=== PATIENT | female | born 1980 | race African-American/Black ===

== ENCOUNTER 2017-05-25 15:00 | Emergency (ER) | payer MEDICARE, OTHER, MEDICAID ==
[~2017-05-25] VITALS: Ht 157.5 cm; Wt 63.5 kg
[~2017-05-25 15:00] MED LIST: ALB5IS NEB; AMINO ACIDS PROTEIN HYDROLYSAT PO; Acetaminophen PO; CAR200T PO; CAR3125T PO; CEFU500T17 PO; HYDR-4663 PO; METH1CHW IM; SUC1LQ PO; [UNRECOGNIZED DRUG - CODE] PO
[2017-05-25] MEDS ORDERED: ACETAMINOPHEN/CODEINE#3 (300/30mg) TAB PO ONE (20:00)
[2017-05-25 20:06] VITALS: BP 109/81
== END 2017-05-25 20:13 | disposition home or self-care (01) ==
LOC: ER 15:16
DX: S86.911A Strain of unspecified muscle(s) and tendon(s) at lower leg level, right leg, initial encounter (principal); S93.401A Sprain of unspecified ligament of right ankle, initial encounter; X58.XXXA Exposure to other specified factors, initial encounter; Y93.89 Activity, other specified; Y92.89 Other specified places as the place of occurrence of the external cause; Y99.8 Other external cause status
CPT/HCPCS: 93970

== ENCOUNTER 2020-08-06 18:07 | Emergency (ER) | payer MEDICARE, OTHER, MEDICAID ==
[~2020-08-06] VITALS: Ht 157.5 cm; Wt 65.8 kg
[~2020-08-06 18:07] MED LIST changes: -HYDR-4663 PO; +HYDR-4833 PO; -SUC1LQ PO; +SUCR1SUS10 PO
[2020-08-06 19:46] LABS: Urine Bacteria FEW /hpf (None Seen); Urine Blood 3+ /uL (Negative); Urine Mucus FEW (None Seen); Urine Specific Gravity 1.019 (1.001-1.035); Urine WBC 27 /hpf (0 - 5)
[2020-08-06 20:45] VITALS: BP 111/71
[2020-08-06 20:54] LABS: Basophils # (auto) 0 10 ^3/uL (0-0.2); Eosinophils # (auto) 0 10 ^3/uL (0-0.8); Lymphocytes # (auto) 1.4 10 ^3/uL (0.4-5.4); Mean Corpuscular Hemoglobin 25.2 pg (28.0-32.0); White Blood Cell 8.5 10^3/uL (4.4-10.8)
[2020-08-06 20:55] LABS: Basophils % (auto) 0.3 % (0.0-2.0); Hematocrit 31.2 % (36.0-46.0); Hemoglobin 9.9 g/dL (12.2-16.2); Mean Corpuscular Hgb Conc. 31.9 g/dL (32.0-36.0); Mean Corpuscular Volume 79.1 fL (80.0-100.0); Monocytes # (auto) 0.9 10 ^3/uL (0-1.3); Monocytes % (auto) 10.3 % (0.0-12.0); Neutrophils # (auto) 6.2 10 ^3/uL (1.6-8.6); Neutrophils % (auto) 73.4 % (37.0-80.0); Nucleated Red Blood Cells % 0.1 %; Platelet Count (auto) 253 10^3/uL (140-450); Red Blood Cells 3.95 10^6/uL (4.0-5.20); Red Cell Distribution Width 17.2 % (11.8-14.3)
[2020-08-06 21:10] LABS: INR 1.05 (0.9-1.15); Partial Thromboplastin Time 24.5 sec (23.0-31.2)
[2020-08-06 21:11] LABS: Albumin 3.1 g/dL (3.4-5.0); Anion Gap 10 (5-15); Aspartate Aminotransferase 21 U/L (15-37); Blood Urea Nitrogen 16 mg/dL (7-18); Calcium 9.1 mg/dL (8.5-10.1); Carbon Dioxide 18 mmol/L (21-32); Chloride 104 mmol/L (98-107); GFR African American 85 mL/min; GFR Non-African American 70 mL/min; Glucose 88 mg/dL (74-106); Potassium 4.4 mmol/L (3.5-5.1); Sodium 132 mmol/L (136-145)
[2020-08-06 21:20] LABS: Alanine Aminotransferase 14 U/L (13-56); Alkaline Phosphatase 70 U/L (45-117); Bilirubin, Total 0.5 mg/dL (0.2-1.0); Total Protein 8.3 g/dL (6.4-8.2)
== END 2020-08-06 20:51 | disposition home or self-care (01) ==
LOC: ER 18:10
DX: R07.89 Other chest pain (principal); N39.0 Urinary tract infection, site not specified
CPT/HCPCS: 36415; 71046; 80053; 81001; 83880; 84484; 85025; 85610; 85730; 93005

== ENCOUNTER → 2020-08-08 | Outpatient (CLI) | payer OTHER, MEDICAID ==
[~2020-08-08] MED LIST changes: +ZIPR80CA8 PO
== END | disposition home or self-care (01) ==
LOC: LAB 14:53
PROVIDERS: ATTEND Physician Assistant
DX: N39.0 Urinary tract infection, site not specified (principal)
CPT/HCPCS: 87086

== ENCOUNTER 2020-08-10 15:36 | Inpatient (IN) | payer OTHER, MEDICAID ==
[~2020-08-10] VITALS: Ht 165.1 cm; Wt 69.1 kg
[~2020-08-10 15:36] MED LIST changes: -ZIPR80CA8 PO
[2020-08-10] MEDS ORDERED: cefTRIAXone 1GM/50ML D5W 50 ML IV ONE (16:00)
[2020-08-10] MEDS ORDERED: SODIUM CHLORIDE 0.9% 1,000 ML IV ONE (16:15)
[2020-08-10 18:39] LABS: White Blood Cell 9.1 10^3/uL (4.4-10.8)
[2020-08-10 18:41] LABS: Hematocrit 27.6 % (36.0-46.0); Hemoglobin 9.2 g/dL (12.2-16.2); Mean Corpuscular Hemoglobin 25.6 pg (28.0-32.0); Mean Corpuscular Hgb Conc. 33.2 g/dL (32.0-36.0); Mean Corpuscular Volume 77.2 fL (80.0-100.0); Platelet Count (auto) 131 10^3/uL (140-450); Red Blood Cells 3.57 10^6/uL (4.0-5.20); Red Cell Distribution Width 16.5 % (11.8-14.3)
[2020-08-10 18:48] LABS: Basophils % (manual) 0 (0.0-2.0); Blast Cells 0; Eosinophils % (manual) 0 (0-7); Myelocytes % 0; Promyelocytes % 0; Reactive Lymphocytes 0
[2020-08-10 18:59] LABS: Albumin 2.4 g/dL (3.4-5.0); Anion Gap 10 (5-15); BUN/Creatinine Ratio 33.3; Blood Urea Nitrogen 40 mg/dL (7-18); Calcium 8.6 mg/dL (8.5-10.1); Carbon Dioxide 21 mmol/L (21-32); Chloride 105 mmol/L (98-107); GFR African American 64 mL/min; GFR Non-African American 53 mL/min; Glucose 121 mg/dL (74-106); Potassium 3.9 mmol/L (3.5-5.1); Sodium 136 mmol/L (136-145)
[2020-08-10 19:04] LABS: Alanine Aminotransferase 18 U/L (13-56); Alkaline Phosphatase 84 U/L (45-117); Aspartate Aminotransferase 42 U/L (15-37); Bilirubin, Total 0.6 mg/dL (0.2-1.0); Total Protein 7.7 g/dL (6.4-8.2)
[2020-08-10 19:14] LABS: Lactate Dehydrogenase 361 U/L (84-246)
[2020-08-10 19:21] LABS: Band Neutrophils % (manual) 1; Lymphocytes % (manual) 13 (10.0-50.0); Metamyelocytes % 2; Monocytes % (manual) 3 (0-12)
[2020-08-10 19:24] LABS: CRP High Sensitivity > 19.0 mg/dL (< 0.3)
[2020-08-10 19:28] LABS: Urine Bacteria NONE SEEN /hpf (None Seen); Urine Blood 3+ /uL (Negative); Urine Mucus FEW (None Seen); Urine Specific Gravity 1.017 (1.001-1.035); Urine WBC 16 /hpf (0 - 5)
[2020-08-10] MEDS ORDERED: AZITHROMYCIN 500MG/ 250ML 250 ML IV ONE (19:45)
[2020-08-10] MEDS ORDERED: IOHEXOL 350 MG/ML 100ML IJ ONE (21:34)
[2020-08-11] MEDS ORDERED: HYDROcodone-ACET 5/325MG TAB PO PRN
[2020-08-11] MEDS ORDERED: MECOBALAMIN IM SCH
[2020-08-11] MEDS ORDERED: NITROGLYCERIN 0.4 MG SL TAB SL PRN
[2020-08-11] MEDS ORDERED: ACETAMINOPHEN 500 MG TAB PO ONE
[2020-08-11] MEDS ORDERED: MORPHINE SULFATE 4 MG/ML SYR/VIAL IV PRN
[2020-08-11] MEDS ORDERED: DOCUSATE SOD 100 MG CAP PO PRN
[2020-08-11] MEDS ORDERED: MORPHINE SULF INJ 2 MG/ML SYRINGE 1ML IV PRN
[2020-08-11] MEDS ORDERED: ALBUTEROL SULF 2.5 MG/0.5ML(0.5%) NEB SOLN NEB PRN
[2020-08-11] MEDS ORDERED: ONDANSETRON HCL 4 MG/2 ML VIAL IV PRN
[2020-08-11 00:13] VITALS: BP 113/75
[2020-08-11 00:59] LABS: Basophils # (auto) 0 10 ^3/uL (0-0.2); Basophils % (auto) 0.1 % (0.0-2.0); Eosinophils # (auto) 0 10 ^3/uL (0-0.8); Hemoglobin 7.9 g/dL (12.2-16.2); Lymphocytes # (auto) 0.6 10 ^3/uL (0.4-5.4); Monocytes # (auto) 0.4 10 ^3/uL (0-1.3); Neutrophils # (auto) 5.8 10 ^3/uL (1.6-8.6); White Blood Cell 6.9 10^3/uL (4.4-10.8)
[2020-08-11 01:00] LABS: Hematocrit 24.2 % (36.0-46.0); Lymphocytes % (auto) 9.3 % (10.0-50.0); Mean Corpuscular Hemoglobin 25.1 pg (28.0-32.0); Mean Corpuscular Hgb Conc. 32.8 g/dL (32.0-36.0); Mean Corpuscular Volume 76.5 fL (80.0-100.0); Monocytes % (auto) 5.9 % (0.0-12.0); Neutrophils % (auto) 84.7 % (37.0-80.0); Platelet Count (auto) 144 10^3/uL (140-450); Red Blood Cells 3.17 10^6/uL (4.0-5.20); Red Cell Distribution Width 16.5 % (11.8-14.3)
[2020-08-11 01:15] LABS: BUN/Creatinine Ratio 34.4; Calcium 7.5 mg/dL (8.5-10.1); Potassium 3.4 mmol/L (3.5-5.1)
[2020-08-11 01:18] LABS: Bilirubin, Total 0.5 mg/dL (0.2-1.0); Total Protein 6.7 g/dL (6.4-8.2)
[2020-08-11] MEDS: SODIUM CHLOR 0.9% PF (SALINE LOCK) 10ML VIAL/SYR IV SCH ×3 (06:11→21:30)
[2020-08-11 07:41] LABS: Basophils # (auto) 0 10 ^3/uL (0-0.2); Basophils % (auto) 0.2 % (0.0-2.0); Eosinophils # (auto) 0 10 ^3/uL (0-0.8); Hemoglobin 8.7 g/dL (12.2-16.2); Monocytes # (auto) 0.5 10 ^3/uL (0-1.3)
[2020-08-11 07:43] LABS: Eosinophils % (auto) 0.1 % (0.0-7.0); Hematocrit 27.5 % (36.0-46.0); Lymphocytes # (auto) 0.3 10 ^3/uL (0.4-5.4); Lymphocytes % (auto) 3.9 % (10.0-50.0); Mean Corpuscular Hemoglobin 24.6 pg (28.0-32.0); Mean Corpuscular Hgb Conc. 31.7 g/dL (32.0-36.0); Mean Corpuscular Volume 77.7 fL (80.0-100.0); Monocytes % (auto) 6.9 % (0.0-12.0); Neutrophils % (auto) 88.9 % (37.0-80.0); Platelet Count (auto) 174 10^3/uL (140-450); Red Blood Cells 3.54 10^6/uL (4.0-5.20); Red Cell Distribution Width 16.9 % (11.8-14.3); White Blood Cell 6.8 10^3/uL (4.4-10.8)
[2020-08-11] MEDS ORDERED: ZIPR80CA8 PO (07:58)
[2020-08-11 08:00] LABS: Albumin 2.3 g/dL (3.4-5.0); Calcium 8.8 mg/dL (8.5-10.1)
[2020-08-11] MEDS: NUTREN 1.0 250 ML BTL PO SCH ×2 (08:00→18:00)
[2020-08-11 08:04] LABS: BUN/Creatinine Ratio 37.8; Bilirubin, Total 0.5 mg/dL (0.2-1.0); Total Protein 7.4 g/dL (6.4-8.2)
[2020-08-11] MEDS: cefTRIAXone 1GM/50ML D5W 50 ML IV SCH (09:23)
[2020-08-11] MEDS: AZITHROMYCIN 500MG/ 250ML 250 ML IV SCH (09:46)
[2020-08-11] MEDS: MULTIPLE VITAMIN TAB PO SCH (09:52)
[2020-08-11] MEDS: ASCORBIC ACID 500 MG TAB PO SCH ×2 (09:53→21:30)
[2020-08-11] MEDS: carBAMazepine 200 MG TAB PO SCH ×2 (09:53→21:30)
[2020-08-11] MEDS: ZINC SULFATE 220mg CAP or TAB PO SCH (09:53)
[2020-08-11] MEDS: FAMOTIDINE 20 MG TAB PO SCH ×2 (09:53→21:30)
[2020-08-11] MEDS ORDERED: CARVEDILOL 3.125 MG TAB PO SCH (10:00)
[2020-08-11] MEDS: ACETAMINOPHEN 325 MG TAB PO PRN (11:11)
--- NOTE | 2020-08-11 16:00 | NUR ---
Per ER nurse patient's mother has been stayed over night with patient at ER, spoke to house Anastasiia stated unable to give a permission for mother to stay due to there is no single room available at this time, left a message to Danni cummings's mother twice, awaiting to call back.
--- NOTE | 2020-08-11 16:15 | NUR ---
Telemetry admit from ER GRETEL RONDON admitted to Telemetry unit after SBAR received. Patient oriented to RYAN FRIED, primary RN, unit, room, bed, and unit policies regarding patient care and visiting hours. Patient now on continuous telemetry monitoring, tele box # 79 and telemetry reading on arrival to unit is . Patient placed on bedside oxygen, weighed by bed scale and encouraged to call if they need something. All questions and concerns addressed, patient verbalized understanding.
--- NOTE | 2020-08-11 16:19 | NUR ---
Flu sent to lab.
--- NOTE | 2020-08-11 16:20 | NUR ---
Unable to complete all admission due to patient's cognitive, left a message to pt's mother -Kelsea, awaiting to call back.
[2020-08-11 16:21] VITALS: BP 103/70
--- NOTE | 2020-08-11 16:48 | NUR ---
Spoke to Nely at Pharmacy regarding patient home meds, per Nely nobody brings home meds to pharmacy.
[2020-08-11 16:59] LABS: % Iron Saturation 6.4 % (15-50)
--- NOTE | 2020-08-11 17:30 | NUR ---
Hand in a lithopone charger to Kelsea at a lobby.
--- NOTE | 2020-08-11 17:45 | NUR ---
Per Rosa kramer, Patient's mother can stay with patient when there is a single room available.
--- NOTE | 2020-08-11 17:50 | NUR ---
Patient transferred from [facility] Patient transferred from [facility]. Report given. No S/S of respiratory distress or SOB. No reports of pain at this time. Transferring nurse explained that the mother Kelsea is scheduled to come in and sit with her daughter. Single room accommodations made for this purpose. Vitals HR 103, RR 20, BP 112/72, O2 96%, temp 98.2. Patient sitting up for dinner. Bed is in lowest position and the call light is within reach of the patient.
--- NOTE | 2020-08-11 18:00 | NUR ---
Report given to JOSH PARKER.
--- NOTE | 2020-08-11 18:05 | NUR ---
Patient is being transfer to room 207 with all belongings. No respiratory distress at the time of departure.
--- NOTE | 2020-08-11 18:05 | NUR ---
Called Kelsea-Mother again regarding patient is being transfer to room 207, left a message. Awaiting to call back.
--- NOTE | 2020-08-11 19:00 | NUR ---
Mother on floor Mother arrived on the floor to stay with patient.
--- NOTE | 2020-08-11 19:05 | NUR ---
Respiratory note: PT RECIEVED ON RA. PT AWAKE AND ALERT. NO RESP DISTRESS NOTED. SPO2 95%, HR 109, RR 16, BS CLEAR T/O. NO PRN TX INDICATED AT THIS TIME. PT AWARE TO CALL FOR PRN TX IF SOB/WHEEZING.
--- NOTE | 2020-08-11 19:30 | NUR ---
Opening Shift Note Assumed care of patient, awake and alert. Patient's mother at bedside and has permission from Vehicle Painter to stay overnight. No S/S of distress/SOB/pain. Fall, seizure, and safety precautions in place. Call light within reach and able to use. Instructed on POC and to call for assist PRN, patient/mother in agreement. Will continue to monitor for changes Q1hr and PRN.
--- NOTE | 2020-08-11 19:45 | NUR ---
STOOL / RESP CULTURE PATIENT HAS ORDERS FOR STOOL AND RESPIRATORY CULTURE. PATIENT DOES NOT HAVE PRODUCTIVE COUGH AND HAS NO HAD BOWEL MOVEMENT. INSTRUCTED PATIENT AND PATIENT'S MOTHER (WHO IS AT BEDSIDE) OF NEED FOR SPECIMEN COLLECTION AND TO NOTIFY THIS RN/STAFF WHEN PATIENT IS ABLE TO OBTAIN, MOTHER VERBALIZED UNDERSTANDING AND IN AGREEMENT. WILL CONTINUE TO MONITOR.
--- NOTE | 2020-08-11 21:15 | NUR ---
POM NOT FOUND POM NOT FOUND. CHECKED [facility]S [facility] WHERE PATIENT CAME FROM, PATIENT MEDICATION NOT FOUND. UNABLE TO GET A HOLD OF PHARMACY. WILL TRY AGAIN.
[2020-08-11] MEDS: ENOXAPARIN SOD 40 MG/0.4 ML SYRINGE SC SCH (21:31)
--- NOTE | 2020-08-11 21:55 | NUR ---
POM / PHARMACY ABLE TO CONNECT TO PHARMACY AT THIS TIME. PER PHARMACY, WILL SEND SCHEDULED MEDICATION VIA BULLET. AWAITING MEDICATION. WILL CONTINUE TO MONITOR.
[2020-08-11] MEDS: ZIPRASIDONE HCL 20 MG PO SCH ×2 (22:00→22:07)
--- NOTE | 2020-08-11 22:00 | NUR ---
TELE BOX CHANGE CONTACTED TELE GROUP CARE WORKER TO NOTIFY THAT PATIENT'S CURRENT TELE BOX IS FROM [facility]'S TELE ASSIGNMENT. WILL SEND CURRENT TELE BOX AND AWAIT NEW TELE BOX. FOR THIS REASON, PATIENT WILL BE OFF TELE MONITORING. WILL CONTINUE TO MONITOR. 2215 NEW TELE BOX RECEIVED, TELE BOX NOW #29 AND MONITORING.
--- NOTE | 2020-08-11 22:00 | NUR ---
MED/POM RECEIVED MED RECEIVED (ZIPRASIDONE) FROM PHARMACY AT THIS TIME. MEDICATION AT 1000 ON 08/11 NOT DOCUMENTED GIVEN (SEE EMAR). FOR THIS REASON, WILL ADMINISTER MEDICATION VIA ADMIN SCHEDULE TO REFLECT 2200 DOSE GIVEN AT THIS TIME.
[2020-08-11 22:02] VITALS: BP 101/66
--- NOTE | 2020-08-12 01:59 | NUR ---
ABNORMAL TELE READING PATIENT'S TELE READING SHOWS VTACH WITH NO RHYTHM PRESENT. PATIENT'S TELE LEADS OFF/MISPLACED. AT 0203, TELE LEADS REPLACED ON PATIENT. PATIENT'S HEART RATE 116BPM. WILL CONTINUE TO MONITOR.
[2020-08-12 05:00] VITALS: BP 98/64
[2020-08-12] MEDS: SODIUM CHLOR 0.9% PF (SALINE LOCK) 10ML VIAL/SYR IV SCH ×3 (05:10→21:32)
[2020-08-12 06:02] LABS: Basophils # (auto) 0 10 ^3/uL (0-0.2); Eosinophils # (auto) 0 10 ^3/uL (0-0.8); Hemoglobin 8.5 g/dL (12.2-16.2); Monocytes # (auto) 0.5 10 ^3/uL (0-1.3); White Blood Cell 6.9 10^3/uL (4.4-10.8)
[2020-08-12 06:04] LABS: Basophils % (auto) 0.1 % (0.0-2.0); Eosinophils % (auto) 0.1 % (0.0-7.0); Hematocrit 26.2 % (36.0-46.0); Lymphocytes # (auto) 2.2 10 ^3/uL (0.4-5.4); Lymphocytes % (auto) 31.7 % (10.0-50.0); Mean Corpuscular Hemoglobin 24.9 pg (28.0-32.0); Mean Corpuscular Hgb Conc. 32.5 g/dL (32.0-36.0); Mean Corpuscular Volume 76.8 fL (80.0-100.0); Monocytes % (auto) 6.9 % (0.0-12.0); Neutrophils # (auto) 4.2 10 ^3/uL (1.6-8.6); Neutrophils % (auto) 61.2 % (37.0-80.0); Nucleated Red Blood Cells % 0.2 %; Platelet Count (auto) 158 10^3/uL (140-450); Red Blood Cells 3.41 10^6/uL (4.0-5.20); Red Cell Distribution Width 16.8 % (11.8-14.3)
[2020-08-12 06:21] LABS: Potassium 3.5 mmol/L (3.5-5.1)
[2020-08-12 06:35] LABS: Albumin 2.2 g/dL (3.4-5.0); BUN/Creatinine Ratio 41.5; Bilirubin, Total 0.5 mg/dL (0.2-1.0); Calcium 9.1 mg/dL (8.5-10.1); Magnesium 2.6 mg/dL (1.6-2.6)
--- NOTE | 2020-08-12 06:46 | NUR ---
[facility] SWAB SENT
--- NOTE | 2020-08-12 07:35 | NUR ---
Opening note assumed care of patient from NOC RN. No s/s of distress or SOB noted. Bed is in lowest locked position, call light within reach, and side rails up x2 with seizure precautions in place. Patients mother at bedside with permission. Updated family and patient on plan of care, mother verbalized understanding and patient requires reinforcement. Will continue to monitor.
[2020-08-12] MEDS: NUTREN 1.0 250 ML BTL PO SCH ×2 (08:00→17:35)
--- NOTE | 2020-08-12 08:30 | NUR ---
Vitals Per CAN FILLING MACHINE OPERATOR vitals are 80/48, reassessment is 84/39 and temperature 101.8. Will provide patient with ice packs and reassess vitals.
--- NOTE | 2020-08-12 08:40 | NUR ---
Katlin patient alert and able to follow commands and is alert. B/p is now 98/ 61 and heart rate 113. No s/s of distress noted. Will continue to monitor. Addendum: 08/12/20 at 1419 by AXEL TEMPLE RN COOLING MEASURES IN PLACE.
[2020-08-12 09:00] VITALS: BP 84/39
--- NOTE | 2020-08-12 09:10 | NUR ---
Physician rounding Dr. Monet at bedside. MD updated patient and family on plan of care. MD spoke with patients sister Renae and provided updated on status. Will continue to monitor.
[2020-08-12] MEDS: ZIPRASIDONE HCL 20 MG PO SCH ×2 (10:00→21:32)
[2020-08-12] MEDS: cefTRIAXone 1GM/50ML D5W 50 ML IV SCH (10:10)
[2020-08-12] MEDS: ZINC SULFATE 220mg CAP or TAB PO SCH (10:11)
[2020-08-12] MEDS: MULTIPLE VITAMIN TAB PO SCH (10:11)
[2020-08-12] MEDS: ASCORBIC ACID 500 MG TAB PO SCH ×2 (10:11→21:32)
[2020-08-12] MEDS: ACETAMINOPHEN 325 MG TAB PO PRN (10:11)
[2020-08-12] MEDS: FAMOTIDINE 20 MG TAB PO SCH ×2 (10:12→21:32)
[2020-08-12] MEDS: ENOXAPARIN SOD 40 MG/0.4 ML SYRINGE SC SCH ×2 (10:16→21:33)
[2020-08-12] MEDS: carBAMazepine 200 MG TAB PO SCH ×2 (10:22→21:32)
[2020-08-12] MEDS: AZITHROMYCIN 500MG/ 250ML 250 ML IV SCH (11:32)
--- NOTE | 2020-08-12 12:27 | NUR ---
MED NEB GIVEN DUE FOR SPUTUM INDUCTION. PT WAS ABLE TO COUGH UP PHLEGM. SAMPLE COLLECTED AND SEND TO LAB. RN MADE AWARE.
[2020-08-12 13:00] VITALS: BP 96/67
[2020-08-12] MEDS: SODIUM FERR GLUC 62.5MG/5ML 125 MG in SODIUM CHL 0.9% 100 ML IV SCH (13:55)
--- NOTE | 2020-08-12 15:00 | NUR ---
spoke with family Spoke with patients sister renae in the presence of Kelsea garcia mother. Renae was requesting information about Dr. Gruber office, provided them with information.
--- NOTE | 2020-08-12 15:55 | NUR ---
Bed bath Assisted patient and their mother with bed bath. Patient tolerated well.
[2020-08-12 17:00] VITALS: BP 109/75
--- NOTE | 2020-08-12 18:36 | NUR ---
PT ASSESSED FOR PRN MED NEB TX. SPO2 95% ON RA, HR 103. NO RESPIRATORY DISTRESS NOTED. MOTHER AT BEDSIDE. BOTH ARE AWARE TO HAVE RT PAGED IF TX NEEDED.
--- NOTE | 2020-08-12 19:10 | NUR ---
End of shift note Endorsed care to NOC KEITH Knox. No s/s of distress noted.
--- NOTE | 2020-08-12 19:25 | NUR ---
Opening Shift Note Assumed care of patient, awake and alert. No S/S of distress/SOB/pain. Fall, seizure, and safety precautions in place. Call light within reach and able to use. Patient's mother at bedside and has permission from Brown Sourer. Instructed on POC and to call for assist PRN, patient/mother in agreement. Will continue to monitor for changes Q1hr and PRN.
[2020-08-12 22:00] VITALS: BP 108/72
[2020-08-13 05:13] VITALS: BP 95/66
[2020-08-13] MEDS: SODIUM CHLOR 0.9% PF (SALINE LOCK) 10ML VIAL/SYR IV SCH ×3 (05:24→22:00)
[2020-08-13 05:39] LABS: Basophils # (auto) 0 10 ^3/uL (0-0.2); Eosinophils # (auto) 0 10 ^3/uL (0-0.8); Nucleated Red Blood Cells % 0.1 %; White Blood Cell 5.5 10^3/uL (4.4-10.8)
[2020-08-13 05:41] LABS: Basophils % (auto) 0.3 % (0.0-2.0); Hematocrit 25.4 % (36.0-46.0); Hemoglobin 8.3 g/dL (12.2-16.2); Lymphocytes # (auto) 0.9 10 ^3/uL (0.4-5.4); Mean Corpuscular Hemoglobin 25.2 pg (28.0-32.0); Mean Corpuscular Hgb Conc. 32.7 g/dL (32.0-36.0); Mean Corpuscular Volume 77.2 fL (80.0-100.0); Monocytes # (auto) 0.7 10 ^3/uL (0-1.3); Monocytes % (auto) 12.6 % (0.0-12.0); Neutrophils # (auto) 3.9 10 ^3/uL (1.6-8.6); Neutrophils % (auto) 71.1 % (37.0-80.0); Platelet Count (auto) 170 10^3/uL (140-450); Red Blood Cells 3.28 10^6/uL (4.0-5.20); Red Cell Distribution Width 16.7 % (11.8-14.3)
[2020-08-13 05:59] LABS: BUN/Creatinine Ratio 44.2; Calcium 8.7 mg/dL (8.5-10.1); Potassium 3.2 mmol/L (3.5-5.1)
--- NOTE | 2020-08-13 07:20 | NUR ---
Respiratory note: RESPIRATORY RATE 24; SPO2 92%; HEART RATE 108; BREATH SOUNDS CLEAR. PT ASLEEP AT THIS TIME. NO RESPIRATORY DISTRESS NOTED.
[2020-08-13] MEDS: NUTREN 1.0 250 ML BTL PO SCH ×2 (08:00→18:00)
[2020-08-13 09:00] VITALS: BP 110/61
[2020-08-13] MEDS: ENOXAPARIN SOD 40 MG/0.4 ML SYRINGE SC SCH ×2 (09:57→22:00)
[2020-08-13] MEDS: FAMOTIDINE 20 MG TAB PO SCH ×2 (09:57→22:46)
[2020-08-13] MEDS: carBAMazepine 200 MG TAB PO SCH ×2 (09:57→22:45)
[2020-08-13] MEDS: MULTIPLE VITAMIN TAB PO SCH (09:57)
[2020-08-13] MEDS: ASCORBIC ACID 500 MG TAB PO SCH ×2 (09:57→22:46)
[2020-08-13] MEDS: ZINC SULFATE 220mg CAP or TAB PO SCH (09:57)
[2020-08-13] MEDS: cefTRIAXone 1GM/50ML D5W 50 ML IV SCH (09:57)
[2020-08-13] MEDS: ZIPRASIDONE HCL 20 MG PO SCH ×2 (10:00→22:00)
[2020-08-13] MEDS: AZITHROMYCIN 500MG/ 250ML 250 ML IV SCH (10:16)
[2020-08-13] MEDS: ACETAMINOPHEN 325 MG TAB PO PRN (10:19)
--- NOTE | 2020-08-13 11:01 | NUR ---
Nutrition Assessment Note please see attached link fro complete assessment Est [employer] needs BW 71 [id number] kcals (23-25 kcal/kgBW), Est Protein needs: 71-92gms/day (1.0-1.3 gm/kgBW r/t hypoalb) Will continue to monitor and reassess prn. Addendum: 08/13/20 at [address] Amended: Links added.
[2020-08-13] MEDS ORDERED: POTASSIUM EFFERVESENT TAB 25 MEQ PO ONE (12:15)
[2020-08-13 13:00] VITALS: BP 112/59
--- NOTE | 2020-08-13 13:10 | NUR ---
STOOL SAMPLE COLLECTED AND SENT
[2020-08-13] MEDS: SODIUM FERR GLUC 62.5MG/5ML 125 MG in SODIUM CHL 0.9% 100 ML IV SCH (13:51)
[2020-08-13 17:00] VITALS: BP 109/70
--- NOTE | 2020-08-13 19:20 | NUR ---
Opening shift note Assumed care of patient from day shift RN. Patient sitting up in bed A&O, respirations even and non-labored with no s/s of distress at this time. Mother of patient bedside. Discussed POC with mother and discussed patient needs, mother verbalized understanding. Bed in lowest locked position with 2 side rails up, call light with mother, advised mother to call for assistance/needs. Will continue to monitor Q1hr and PRN.
[2020-08-13 20:54] VITALS: BP 109/70
[2020-08-13 22:00] VITALS: BP 110/73
--- NOTE | 2020-08-14 00:55 | NUR ---
Respiratory note: PT SEEN AND ASSESSED FOR PRN MED NEB TX AT 0055. TX NOT INDICATED AT THIS TIME. PT DENIES HAVING ANY RESPIRATORY DISTRESS. HR 101 RR 16 SP02 97% ON ROOM AIR. PT AWARE TO CALL FOR RT IF ANY DISTRESS OCCURS.
[2020-08-14 04:37] VITALS: BP 95/57
[2020-08-14 05:53] LABS: Basophils # (auto) 0 10 ^3/uL (0-0.2); Basophils % (auto) 0.5 % (0.0-2.0); Eosinophils # (auto) 0 10 ^3/uL (0-0.8); Hematocrit 25.8 % (36.0-46.0); Hemoglobin 8.2 g/dL (12.2-16.2); Lymphocytes # (auto) 0.9 10 ^3/uL (0.4-5.4); Lymphocytes % (auto) 15.8 % (10.0-50.0); Mean Corpuscular Hemoglobin 24.7 pg (28.0-32.0); Mean Corpuscular Hgb Conc. 31.9 g/dL (32.0-36.0); Mean Corpuscular Volume 77.3 fL (80.0-100.0); Monocytes # (auto) 0.7 10 ^3/uL (0-1.3); Monocytes % (auto) 11.9 % (0.0-12.0); Neutrophils # (auto) 4.1 10 ^3/uL (1.6-8.6); Neutrophils % (auto) 71.8 % (37.0-80.0); Nucleated Red Blood Cells % 0.2 %; Platelet Count (auto) 192 10^3/uL (140-450); Red Blood Cells 3.34 10^6/uL (4.0-5.20); Red Cell Distribution Width 16.8 % (11.8-14.3); White Blood Cell 5.7 10^3/uL (4.4-10.8)
[2020-08-14] MEDS: SODIUM CHLOR 0.9% PF (SALINE LOCK) 10ML VIAL/SYR IV SCH ×3 (06:18→21:18)
[2020-08-14 06:29] LABS: BUN/Creatinine Ratio 38.1; Potassium 3.1 mmol/L (3.5-5.1)
--- NOTE | 2020-08-14 06:41 | NUR ---
Patient resting Patient sleeping, respirations even and non-labored with no s/s of distress at this time. Mother bedside.
--- NOTE | 2020-08-14 08:15 | NUR ---
Opening Shift Note Assumed care of patient, awake and alert. No S/S of distress/SOB or pain. Patients mother bedside to provide reorientation. Instructed on POC and to call for assist PRN, will continue to monitor for changes Q1hr and PRN.
[2020-08-14 08:30] VITALS: BP 115/58
--- NOTE | 2020-08-14 08:32 | NUR ---
Respiratory note: PT SPO2 94% ON ROOM AIR. BREATH SOUNDS ARE CLEAR T/O. RESPIRATORY RATE 20. HEART RATE 91. NO RESPIRATORY DISTRESS NOTED AT THIS TIME.
[2020-08-14] MEDS ORDERED: POTASSIUM CHLORIDE 40 MEQ, LIDOCAINE 1% (LOCAL ANESTH.) 4 ML in SODIUM CHL 0.9% 250 ML IV ONE (09:45)
[2020-08-14] MEDS ORDERED: POTASSIUM CHL 20 Meq TABLET PO ONE (09:45)
[2020-08-14] MEDS: FAMOTIDINE 20 MG TAB PO SCH ×2 (10:09→21:20)
[2020-08-14] MEDS: MULTIPLE VITAMIN TAB PO SCH (10:10)
[2020-08-14] MEDS: ZINC SULFATE 220mg CAP or TAB PO SCH (10:11)
[2020-08-14] MEDS: NUTREN 1.0 250 ML BTL PO SCH ×2 (10:39→18:52)
[2020-08-14] MEDS: carBAMazepine 200 MG TAB PO SCH ×2 (10:40→21:20)
[2020-08-14] MEDS: ZIPRASIDONE HCL 20 MG PO SCH ×2 (10:40→21:19)
[2020-08-14] MEDS: cefTRIAXone 1GM/50ML D5W 50 ML IV SCH (10:40)
[2020-08-14] MEDS: AZITHROMYCIN 500MG/ 250ML 250 ML IV SCH (10:41)
--- NOTE | 2020-08-14 10:41 | NUR ---
tegretol am dose refused by patient and patients mom per patients mom Kelsea this med is only taken at night.
--- NOTE | 2020-08-14 10:42 | NUR ---
non admin med amino acids 30ml. per patients mom Kelsea this med is at home. made aware.
[2020-08-14] MEDS: ACETAMINOPHEN 325 MG TAB PO PRN (10:44)
[2020-08-14 12:30] VITALS: BP 100/55
[2020-08-14] MEDS: ASCORBIC ACID 500 MG TAB PO SCH ×2 (15:00→21:20)
[2020-08-14] MEDS: ENOXAPARIN SOD 40 MG/0.4 ML SYRINGE SC SCH ×2 (15:01→21:21)
--- NOTE | 2020-08-14 15:40 | NUR ---
PHARMACY CALLED TO SEND MEDS NOT IN [facility].
[2020-08-14 16:55] VITALS: BP 96/67
--- NOTE | 2020-08-14 17:27 | NUR ---
recalled pharmacy spoke with CAMPBELL; he will mix med and send to central
[2020-08-14] MEDS: SODIUM FERR GLUC 62.5MG/5ML 125 MG in SODIUM CHL 0.9% 100 ML IV SCH (18:52)
--- NOTE | 2020-08-14 19:09 | NUR ---
Respiratory note: ASSESSMENT FOR PRN MED NEB TX, HR 89, SPO2 96% ON ROOM AIR, RR 19, BS CLEAR/DIMINISHED. MED NEB TX NOT INDICATED AT THIS TIME, PT IN NO RESPIRATORY DISTRESS. PT MADE AWARE TO HAVE RT PAGED IF NEEDED, WILL CONTINUE TO MONITOR.
--- NOTE | 2020-08-14 19:15 | NUR ---
Opening shift note Assumed care of patient from day shift RN, Juaquin. Patient sitting up in bed, A&O to self, answered yes/no questions, respirations even and non-labored with no s/s of distress or c/o pain at this time. Patients mother downstairs at the moment, will return to discuss the patients POC and to answer any questions. Patient assessed at this time and tolerated well. Bed in the lowest locked position with 2 side rails up, seizure precautions in place, call light within the hands of the patient who has demonstrated the ability to use it to call for help. Will continue to monitor Q1hr and PRN.
--- NOTE | 2020-08-14 19:18 | NUR ---
ENDORSED CARE TO NIGHT RN. PATIENT RUNNING FERRETIN, PATIENT WILL RECEIVE HER ONE TIME DOSE POTASSIUM 40 MEQ.
--- NOTE | 2020-08-14 20:00 | NUR ---
Discussed POC with patients mother Answered questions with family members on phone. Family verbalized understanding.
[2020-08-14 22:00] VITALS: BP 95/67
[2020-08-15 04:59] VITALS: BP 114/60
[2020-08-15] MEDS: SODIUM CHLOR 0.9% PF (SALINE LOCK) 10ML VIAL/SYR IV SCH ×2 (06:00→14:00)
[2020-08-15 06:05] LABS: Hemoglobin 7.8 g/dL (12.2-16.2)
[2020-08-15 06:07] LABS: Hematocrit 24.4 % (36.0-46.0); Mean Corpuscular Hemoglobin 24.9 pg (28.0-32.0); Mean Corpuscular Hgb Conc. 31.9 g/dL (32.0-36.0); Mean Corpuscular Volume 77.8 fL (80.0-100.0); Platelet Count (auto) 179 10^3/uL (140-450); Red Blood Cells 3.13 10^6/uL (4.0-5.20); Red Cell Distribution Width 16.9 % (11.8-14.3)
[2020-08-15 06:15] LABS: Albumin 2.1 g/dL (3.4-5.0); Calcium 8.5 mg/dL (8.5-10.1); Magnesium 1.9 mg/dL (1.6-2.6); Potassium 3.9 mmol/L (3.5-5.1)
[2020-08-15 06:20] LABS: BUN/Creatinine Ratio 37.7; Basophils % (manual) 0 (0.0-2.0); Bilirubin, Total 0.2 mg/dL (0.2-1.0); Blast Cells 0; Eosinophils % (manual) 0 (0-7); Myelocytes % 0; Promyelocytes % 0; Reactive Lymphocytes 0; Total Protein 6.1 g/dL (6.4-8.2)
--- NOTE | 2020-08-15 07:00 | NUR ---
Patient sleeping Respirations even and non-labored with no s/s of distress at this time. Mother sleeping bedside.
[2020-08-15 07:05] LABS: Band Neutrophils % (manual) 5; Lymphocytes % (manual) 27 (10.0-50.0); Metamyelocytes % 1; Monocytes % (manual) 8 (0-12)
[2020-08-15] MEDS: cefTRIAXone 1GM/50ML D5W 50 ML IV SCH (09:00)
[2020-08-15] MEDS: ZIPRASIDONE HCL 20 MG PO SCH (10:00)
[2020-08-15] MEDS: ENOXAPARIN SOD 40 MG/0.4 ML SYRINGE SC SCH (10:00)
[2020-08-15] MEDS: AZITHROMYCIN 500MG/ 250ML 250 ML IV SCH (10:00)
[2020-08-15] MEDS: carBAMazepine 200 MG TAB PO SCH (10:00)
[2020-08-15] MEDS: FAMOTIDINE 20 MG TAB PO SCH (10:00)
[2020-08-15] MEDS: ZINC SULFATE 220mg CAP or TAB PO SCH (10:00)
[2020-08-15] MEDS: ASCORBIC ACID 500 MG TAB PO SCH (10:00)
[2020-08-15] MEDS: MULTIPLE VITAMIN TAB PO SCH (10:00)
[2020-08-15] MEDS ORDERED: POLY33504 PO (10:46)
[2020-08-15] MEDS ORDERED: LEVO750T8 PO (10:46)
[2020-08-15] MEDS ORDERED: FERR-7 PO (10:46)
[2020-08-15] MEDS: NUTREN 1.0 250 ML BTL PO SCH (11:50)
[2020-08-15] MEDS: SODIUM FERR GLUC 62.5MG/5ML 125 MG in SODIUM CHL 0.9% 100 ML IV SCH (12:00)
--- NOTE | 2020-08-15 12:00 | NUR ---
REFUSED ALL MEDICATION AND TREATMENTS. PATIENTS MOTHER NOT AT BEDSIDE TO ORIENT THE PATIENT. THIS RN CALLED PATIENT MOTHER TO INFORM HER PATIENT WILL NOT ACCEPT ANY MEDICATION OR TREATMENTS. IV TO BE REMOVED WHEN PATIENTS MOTHER IS AT BEDSIDE.
[2020-08-15 12:11] VITALS: BP 95/62
--- NOTE | 2020-08-15 13:29 | NUR ---
[facility] FAXED FACE SHEET TO PHARMACY.
--- NOTE | 2020-08-15 15:20 | NUR ---
FOLLOW UP APPOINTMENTS VICTORINO PINEDA SCHEDULED THE PATIENT AND PATIENTS MOTHER WITH DR RAHMAN IN HIS CLINIC. APPOINTMENT INFORMATION GIVEN TO
--- NOTE | 2020-08-15 15:54 | NUR ---
POM MEDICATIONS PICKED UP FROM [facility] AND GIVEN TO PATIENT MOTHER MANUEL; FORM SIGNED AND PLACED IN HARD CHART
--- NOTE | 2020-08-15 15:55 | NUR ---
TELE #[id number] SENT BACK TO ICU.
--- NOTE | 2020-08-15 15:55 | NUR ---
NEW MEDICATIONS PATIENTS MOM MANUEL PICKED UP NEW PRESCRIPTIONS AT [facility]. EDUCATED PROVIDED, MANUEL VERBALIZED UNDERSTANDING
--- NOTE | 2020-08-15 15:57 | NUR ---
Discharge instructions given as ordered. Encourage to follow up with PMD as instructed. All questions and concerns addressed. Patient verbalized understanding. Medication reconciliation form completed and copy given to patient. Home medications held in Pharmacy returned to patient. IV removed with catheter intact, pressure dressing applied. Telemetry unit returned to ICU. Patient taken to vehicle via wheelchair with all personal belongings, accompanied by staff and family member. No distress noted at time of departure.
== END 2020-08-15 16:00 | disposition home or self-care (01) | DRG 871 ==
LOC: EDBD 15:36 → ER 15:36 → TELE 15:37 → TELE-CENTR 08-11 16:00 → TELE-WESTW 08-11 16:03 → TELE-CENTR 08-11 18:00
PROVIDERS: ADMIT Nurse Practitioner Family; ATTEND Internal Medicine
DX: A41.9 Sepsis, unspecified organism (principal); J18.9 Pneumonia, unspecified organism; J96.01 Acute respiratory failure with hypoxia; N30.00 Acute cystitis without hematuria; E44.0 Moderate protein-calorie malnutrition; C18.9 Malignant neoplasm of colon, unspecified; J44.0 Chronic obstructive pulmonary disease with (acute) lower respiratory infection; Z20.828 Contact with and (suspected) exposure to other viral communicable diseases; F79 Unspecified intellectual disabilities; E87.6 Hypokalemia; G40.909 Epilepsy, unspecified, not intractable, without status epilepticus; B96.20 Unspecified Escherichia coli [E. coli] as the cause of diseases classified elsewhere; F10.20 Alcohol dependence, uncomplicated; F32.9 Major depressive disorder, single episode, unspecified; F41.9 Anxiety disorder, unspecified; Z79.01 Long term (current) use of anticoagulants; Z79.891 Long term (current) use of opiate analgesic; Z79.899 Other long term (current) drug therapy; Z80.0 Family history of malignant neoplasm of digestive organs; Z80.1 Family history of malignant neoplasm of trachea, bronchus and lung; Z80.3 Family history of malignant neoplasm of breast; Z80.41 Family history of malignant neoplasm of ovary; Z80.8 Family history of malignant neoplasm of other organs or systems; Z81.8 Family history of other mental and behavioral disorders; Z82.0 Family history of epilepsy and other diseases of the nervous system; Z82.3 Family history of stroke; Z82.49 Family history of ischemic heart disease and other diseases of the circulatory system; Z82.5 Family history of asthma and other chronic lower respiratory diseases; Z82.62 Family history of osteoporosis; Z83.3 Family history of diabetes mellitus; Z87.442 Personal history of urinary calculi
CPT/HCPCS: 36415; 71045; 71275; 80048; 80053; 81001; 82270; 82728; 83036; 83540; 83550; 83605; 83615; 83735; 83880; 84484; 85007; 85025; 85027; 85379; 86141; 86606; 86635; 86738; 87040; 87070; 87081; 87086; 87088; 87186; 87205; 87278; 87426; 87804; 93970; 94640; G0378; J0696; J1756; J2001

== ENCOUNTER → 2020-09-05 | Outpatient (CLI) | payer OTHER, MEDICAID ==
[~2020-09-05] MED LIST changes: -AMINO ACIDS PROTEIN HYDROLYSAT PO; -Acetaminophen PO; -CAR3125T PO; -CEFU500T17 PO; +FERR-7 PO; -HYDR-4833 PO; +LEVO750T8 PO; -METH1CHW IM; +POLY33504 PO; -SUCR1SUS10 PO; -[UNRECOGNIZED DRUG - CODE] PO
== END | disposition home or self-care (01) ==
LOC: LAB 16:34
PROVIDERS: ATTEND Physician Assistant
DX: N39.0 Urinary tract infection, site not specified (principal)
CPT/HCPCS: 87086

== ENCOUNTER → 2020-09-22 | Outpatient (CLI) | payer OTHER, MEDICAID, MEDICARE, BC ==
[2020-09-22 12:38] LABS: Basophils # (auto) 0 10 ^3/uL (0-0.2); Eosinophils # (auto) 0 10 ^3/uL (0-0.8); Hemoglobin 10.4 g/dL (12.2-16.2); Monocytes # (auto) 0.3 10 ^3/uL (0-1.3); White Blood Cell 2.2 10^3/uL (4.4-10.8)
[2020-09-22 12:40] LABS: Basophils % (auto) 0.4 % (0.0-2.0); Hematocrit 32.5 % (36.0-46.0); Lymphocytes # (auto) 1.2 10 ^3/uL (0.4-5.4); Lymphocytes % (auto) 54.1 % (10.0-50.0); Mean Corpuscular Hemoglobin 26.3 pg (28.0-32.0); Mean Corpuscular Hgb Conc. 31.9 g/dL (32.0-36.0); Mean Corpuscular Volume 82.5 fL (80.0-100.0); Monocytes % (auto) 13.9 % (0.0-12.0); Neutrophils # (auto) 0.7 10 ^3/uL (1.6-8.6); Neutrophils % (auto) 31.6 % (37.0-80.0); Nucleated Red Blood Cells % 0.2 %; Platelet Count (auto) 238 10^3/uL (140-450); Red Blood Cells 3.94 10^6/uL (4.0-5.20)
[2020-09-22 12:41] LABS: Red Cell Distribution Width 22.4 % (11.8-14.3)
[2020-09-22 13:19] LABS: Albumin 3.1 g/dL (3.4-5.0); Calcium 8.9 mg/dL (8.5-10.1)
[2020-09-22 13:24] LABS: BUN/Creatinine Ratio 10.8; Bilirubin, Total 0.2 mg/dL (0.2-1.0); Total Protein 7.4 g/dL (6.4-8.2)
[2020-09-22 13:27] LABS: % Iron Saturation 25.3 % (15-50)
== END | disposition home or self-care (01) ==
LOC: LAB 12:12
PROVIDERS: ATTEND Internal Medicine
DX: E61.1 Iron deficiency (principal); E79.8 Other disorders of purine and pyrimidine metabolism; M85.80 Other specified disorders of bone density and structure, unspecified site; E78.00 Pure hypercholesterolemia, unspecified
CPT/HCPCS: 36415; 80053; 80061; 82306; 83540; 83550; 85025

== ENCOUNTER 2021-03-24 13:50 | Emergency (ER) | payer OTHER, MEDICAID ==
[~2021-03-24] VITALS: Ht 154.9 cm; Wt 68.0 kg
[~2021-03-24 13:50] MED LIST changes: -CAR200T PO; +CARB200T5 PO
[2021-03-24 16:22] VITALS: BP 111/82
== END 2021-03-24 17:21 | disposition home or self-care (01) ==
LOC: ER 13:50
DX: M79.661 Pain in right lower leg (principal); M71.21 Synovial cyst of popliteal space [Baker], right knee; Z79.2 Long term (current) use of antibiotics; Z79.899 Other long term (current) drug therapy
CPT/HCPCS: 93971

== ENCOUNTER → 2021-04-30 | Outpatient (CLI) | payer OTHER, MEDICAID ==
[2021-04-30 14:20] LABS: Basophils # (auto) 0 10 ^3/uL (0-0.2); Basophils % (auto) 0.7 % (0.0-2.0); Eosinophils # (auto) 0 10 ^3/uL (0-0.8); Eosinophils % (auto) 0.1 % (0.0-7.0); Hematocrit 30.2 % (36.0-46.0); Lymphocytes # (auto) 1.2 10 ^3/uL (0.4-5.4); Lymphocytes % (auto) 47.9 % (10.0-50.0); Mean Corpuscular Hemoglobin 25.8 pg (28.0-32.0); Mean Corpuscular Hgb Conc. 33.1 g/dL (32.0-36.0); Mean Corpuscular Volume 77.8 fL (80.0-100.0); Monocytes # (auto) 0.4 10 ^3/uL (0-1.3); Monocytes % (auto) 14.6 % (0.0-12.0); Neutrophils % (auto) 36.7 % (37.0-80.0); Nucleated Red Blood Cells % 0.2 %; Red Blood Cells 3.88 10^6/uL (4.0-5.20); Red Cell Distribution Width 15.8 % (11.8-14.3); White Blood Cell 2.6 10^3/uL (4.4-10.8)
[2021-04-30 15:02] LABS: Albumin 3.1 g/dL (3.4-5.0); BUN/Creatinine Ratio 14.9; Calcium 8.2 mg/dL (8.5-10.1); Potassium 3.8 mmol/L (3.5-5.1)
[2021-04-30 15:05] LABS: Bilirubin, Total 0.2 mg/dL (0.2-1.0); Total Protein 7.5 g/dL (6.4-8.2)
== END | disposition home or self-care (01) ==
LOC: LAB 13:44
PROVIDERS: ATTEND Internal Medicine
DX: E55.9 Vitamin D deficiency, unspecified (principal); F79 Unspecified intellectual disabilities; G40.919 Epilepsy, unspecified, intractable, without status epilepticus; R73.9 Hyperglycemia, unspecified; Z79.899 Other long term (current) drug therapy
CPT/HCPCS: 36415; 80053; 82306; 83036; 84443; 85025

== ENCOUNTER → 2022-02-11 | Outpatient (CLI) | payer OTHER, MEDICAID | END | disposition home or self-care (01) | LOC: LAB 13:56 | PROVIDERS: ATTEND Internal Medicine | DX: E55.9 Vitamin D deficiency, unspecified (principal); R73.03 Prediabetes | CPT/HCPCS: 36415; 82306; 83036 ==

== ENCOUNTER → 2022-08-26 | Outpatient (CLI) | payer OTHER, MEDICAID ==
[2022-08-26 14:12] LABS: Basophils # (auto) 0 10 ^3/uL (0-0.2); Eosinophils # (auto) 0 10 ^3/uL (0-0.8); Hemoglobin 10.7 g/dL (12.2-16.2); Lymphocytes # (auto) 1.2 10 ^3/uL (0.4-5.4); Monocytes # (auto) 0.3 10 ^3/uL (0-1.3); White Blood Cell 2.5 10^3/uL (4.4-10.8)
[2022-08-26 14:16] LABS: Basophils % (auto) 0.4 % (0.0-2.0); Hematocrit 32.9 % (36.0-46.0); Lymphocytes % (auto) 49.3 % (10.0-50.0); Mean Corpuscular Hemoglobin 24.9 pg (28.0-32.0); Mean Corpuscular Hgb Conc. 32.5 g/dL (32.0-36.0); Mean Corpuscular Volume 76.6 fL (80.0-100.0); Monocytes % (auto) 11.5 % (0.0-12.0); Neutrophils % (auto) 38.8 % (37.0-80.0); Nucleated Red Blood Cells % 0.3 %; Red Blood Cells 4.29 10^6/uL (4.0-5.20); Red Cell Distribution Width 18.5 % (11.8-14.3)
[2022-08-26 15:01] LABS: Albumin 3.3 g/dL (3.4-5.0); BUN/Creatinine Ratio 19.4; Bilirubin, Total 0.2 mg/dL (0.2-1.0); Total Protein 7.5 g/dL (6.4-8.2)
== END | disposition home or self-care (01) ==
LOC: LAB 13:55
PROVIDERS: ATTEND Internal Medicine
DX: E78.00 Pure hypercholesterolemia, unspecified (principal); E55.9 Vitamin D deficiency, unspecified; E11.9 Type 2 diabetes mellitus without complications
CPT/HCPCS: 36415; 80053; 80061; 82306; 83036; 84439; 84443; 85025

== ENCOUNTER 2022-09-20 23:38 | Emergency (ER) | payer OTHER, MEDICAID ==
[~2022-09-20] VITALS: Ht 154.9 cm; Wt 72.9 kg
[2022-09-21 04:30] VITALS: BP 129/67
== END 2022-09-21 04:37 | disposition home or self-care (01) ==
LOC: ER 23:38
DX: U07.1 COVID-19 (principal); J06.9 Acute upper respiratory infection, unspecified; Z79.2 Long term (current) use of antibiotics; Z79.899 Other long term (current) drug therapy
CPT/HCPCS: 36415; 87426

== ENCOUNTER → 2022-11-18 | Outpatient (CLI) | payer OTHER, MEDICAID ==
[2022-11-18 13:28] LABS: Basophils # (auto) 0 10 ^3/uL (0-0.2); Eosinophils # (auto) 0 10 ^3/uL (0-0.8); Hemoglobin 10.6 g/dL (12.2-16.2); Neutrophils # (auto) 1.3 10 ^3/uL (1.6-8.6); White Blood Cell 2.9 10^3/uL (4.4-10.8)
[2022-11-18 13:30] LABS: Basophils % (auto) 0.7 % (0.0-2.0); Hematocrit 34.5 % (36.0-46.0); Lymphocytes # (auto) 1.2 10 ^3/uL (0.4-5.4); Lymphocytes % (auto) 41.7 % (10.0-50.0); Mean Corpuscular Hemoglobin 23.9 pg (28.0-32.0); Mean Corpuscular Hgb Conc. 30.8 g/dL (32.0-36.0); Mean Corpuscular Volume 77.7 fL (80.0-100.0); Monocytes # (auto) 0.4 10 ^3/uL (0-1.3); Monocytes % (auto) 13.4 % (0.0-12.0); Neutrophils % (auto) 44.2 % (37.0-80.0); Nucleated Red Blood Cells % 0.2 %; Red Blood Cells 4.44 10^6/uL (4.0-5.20); Red Cell Distribution Width 17.7 % (11.8-14.3)
[2022-11-18 14:03] LABS: Albumin 3.5 g/dL (3.4-5.0); Calcium 8.8 mg/dL (8.5-10.1); Potassium 4.7 mmol/L (3.5-5.1)
[2022-11-18 14:08] LABS: BUN/Creatinine Ratio 15.9; Bilirubin, Total 0.3 mg/dL (0.2-1.0); Total Protein 7.7 g/dL (6.4-8.2)
== END | disposition home or self-care (01) ==
LOC: LAB 12:56
PROVIDERS: ATTEND Internal Medicine
DX: E55.9 Vitamin D deficiency, unspecified (principal); E78.5 Hyperlipidemia, unspecified; R00.2 Palpitations; R73.9 Hyperglycemia, unspecified
CPT/HCPCS: 36415; 80053; 80061; 82306; 83036; 84443; 85025

== ENCOUNTER → 2023-09-18 | Outpatient (CLI) | payer OTHER, MEDICAID ==
[2023-09-18 15:20] LABS: Basophils # (auto) 0 10 ^3/uL (0-0.2); Basophils % (auto) 0.8 % (0.0-2.0); Eosinophils # (auto) 0 10 ^3/uL (0-0.8); Hematocrit 32.6 % (36.0-46.0); Hemoglobin 10.2 g/dL (12.2-16.2); Lymphocytes # (auto) 1.4 10 ^3/uL (0.4-5.4); Lymphocytes % (auto) 51.6 % (10.0-50.0); Mean Corpuscular Hemoglobin 24.1 pg (28.0-32.0); Mean Corpuscular Hgb Conc. 31.2 g/dL (32.0-36.0); Mean Corpuscular Volume 77.3 fL (80.0-100.0); Monocytes # (auto) 0.3 10 ^3/uL (0-1.3); Monocytes % (auto) 11.2 % (0.0-12.0); Neutrophils % (auto) 36.4 % (37.0-80.0); Nucleated Red Blood Cells % 0.2 %; Red Blood Cells 4.23 10^6/uL (4.0-5.20); Red Cell Distribution Width 18.1 % (11.8-14.3); White Blood Cell 2.8 10^3/uL (4.4-10.8)
[2023-09-18 16:15] LABS: Alanine Aminotransferase 12 U/L (7-40); Alkaline Phosphatase 68 U/L (46-116); Anion Gap 8 (5-15); Aspartate Aminotransferase 17 U/L (13-40); BUN/Creatinine Ratio 15.2 (10.0-20.0); Blood Urea Nitrogen 12 mg/dL (9-23); Calcium 9.1 mg/dL (8.5-10.1); Carbon Dioxide 21 mmol/L (20-30); Chloride 109 mmol/L (98-107); Glucose 84 mg/dL (74-106); Sodium 138 mmol/L (136-145)
[2023-09-18 16:16] LABS: Bilirubin, Total 0.2 mg/dL (0.2-1.0); Total Protein 7.3 g/dL (5.7-8.2)
== END | disposition home or self-care (01) ==
LOC: LAB 14:32
PROVIDERS: ATTEND Internal Medicine
DX: F72 Severe intellectual disabilities (principal); R73.9 Hyperglycemia, unspecified; E55.9 Vitamin D deficiency, unspecified; D64.9 Anemia, unspecified
CPT/HCPCS: 36415; 80053; 82306; 83036; 84443; 85025

== ENCOUNTER 2023-12-06 20:49 | Inpatient (IN) | payer OTHER, MEDICAID ==
[~2023-12-06] VITALS: Ht 160 cm; Wt 72.0 kg
[~2023-12-06 20:49] MED LIST changes: +LACT10SO3 PO
[2023-12-06 21:33] LABS: Alanine Aminotransferase 24 U/L (7-40); Albumin 3.7 g/dL (3.2-4.8); Alkaline Phosphatase 105 U/L (46-116); Anion Gap 10 (5-15); Aspartate Aminotransferase 37 U/L (13-40); BUN/Creatinine Ratio 26.9 (10.0-20.0); Blood Urea Nitrogen 29 mg/dL (9-23); Calcium 8.9 mg/dL (8.7-10.4); Carbon Dioxide 24 mmol/L (20-30); Chloride 102 mmol/L (98-107); Glucose 123 mg/dL (74-106); Potassium 3.1 mmol/L (3.5-5.1); Sodium 136 mmol/L (136-145)
[2023-12-06 21:34] LABS: Bilirubin, Total 0.4 mg/dL (0.2-1.0); Total Protein 7.6 g/dL (5.7-8.2)
[2023-12-06 21:37] LABS: Basophils # (auto) 0 10 ^3/uL (0-0.2); Eosinophils # (auto) 0 10 ^3/uL (0-0.8); Mean Corpuscular Hgb Conc. 31.2 g/dL (32.0-36.0); White Blood Cell 2.3 10^3/uL (4.4-10.8)
[2023-12-06 21:39] LABS: Basophils % (auto) 0.1 % (0.0-2.0); Hematocrit 31.5 % (36.0-46.0); Hemoglobin 9.8 g/dL (12.2-16.2); Lymphocytes % (auto) 42.3 % (10.0-50.0); Mean Corpuscular Hemoglobin 23.1 pg (28.0-32.0); Mean Corpuscular Volume 74.3 fL (80.0-100.0); Monocytes # (auto) 0.3 10 ^3/uL (0-1.3); Monocytes % (auto) 14.9 % (0.0-12.0); Neutrophils % (auto) 42.7 % (37.0-80.0); Nucleated Red Blood Cells % 0.4 %; Red Blood Cells 4.25 10^6/uL (4.0-5.20); Red Cell Distribution Width 17.5 % (11.8-14.3)
[2023-12-06] MEDS: ACETAMINOPHEN 500 MG TAB PO ONE (21:42)
[2023-12-06 22:12] LABS: Urine Bacteria NONE SEEN /hpf (None Seen); Urine Blood 2+ /uL (Negative); Urine Clarity HAZY (Clear); Urine Color Yellow (Yellow); Urine Mucus FEW (None Seen); Urine Protein, UAD 1+ (Negative); Urine Specific Gravity 1.016 (1.001-1.035); Urine Urobilinogen Normal (Negative); Urine WBC <1 /hpf (0 - 5)
[2023-12-07] VITALS: PULSE 86; RESP 18; O2SAT 96
[2023-12-07] MEDS: SODIUM CHLORIDE 0.9% 1,000 ML IV ONE (00:35)
[2023-12-07] MEDS: POTASSIUM CHL 20MEQ/100ML 100 ML IV SCH (00:36)
[2023-12-07] MEDS ORDERED: DOCUSATE SOD 100 MG CAP PO PRN (01:15)
[2023-12-07] MEDS ORDERED: ONDANSETRON HCL 4 MG/2 ML VIAL IV PRN (01:15)
[2023-12-07] MEDS: SODIUM CHLORIDE 0.9% 1,000 ML IV SCH (01:45)
[2023-12-07] MEDS: AZITHROMYCIN 500MG/ 250ML 250 ML IV ONE (02:17)
[2023-12-07] MEDS ORDERED: MORPHINE SULFATE INJ 2 MG/ml SYRG IV PRN (02:30)
[2023-12-07] MEDS ORDERED: NITROGLYCERIN 0.4 MG SL TAB SL PRN (02:30)
[2023-12-07 06:22] LABS: Hemoglobin 8.6 g/dL (12.2-16.2)
[2023-12-07 06:26] LABS: Hematocrit 27.1 % (36.0-46.0); Mean Corpuscular Hemoglobin 23.4 pg (28.0-32.0); Mean Corpuscular Hgb Conc. 31.7 g/dL (32.0-36.0); Mean Corpuscular Volume 73.7 fL (80.0-100.0); Red Blood Cells 3.68 10^6/uL (4.0-5.20); Red Cell Distribution Width 17.1 % (11.8-14.3)
[2023-12-07 06:28] LABS: Alanine Aminotransferase 20 U/L (7-40); Alkaline Phosphatase 92 U/L (46-116); Anion Gap 7 (5-15); Aspartate Aminotransferase 31 U/L (13-40); BUN/Creatinine Ratio 35.3 (10.0-20.0); Blood Urea Nitrogen 36 mg/dL (9-23); Calcium 8.2 mg/dL (8.7-10.4); Carbon Dioxide 23 mmol/L (20-30); Chloride 107 mmol/L (98-107); Glucose 129 mg/dL (74-106); Potassium 3.7 mmol/L (3.5-5.1); Sodium 137 mmol/L (136-145)
[2023-12-07 06:29] LABS: Bilirubin, Total 0.3 mg/dL (0.2-1.0); Total Protein 6.2 g/dL (5.7-8.2)
[2023-12-07 07:19] LABS: Basophils % (manual) 0 (0.0-2.0); Blast Cells 0; Eosinophils % (manual) 0 (0-7); Metamyelocytes % 0; Myelocytes % 0; Promyelocytes % 0; Reactive Lymphocytes 0; White Blood Cell 1.6 10^3/uL (4.4-10.8)
[2023-12-07 08:10] VITALS: PULSE 92; RESP 16; O2SAT 96
[2023-12-07 08:28] LABS: Band Neutrophils % (manual) 2; Lymphocytes % (manual) 53 (10.0-50.0); Monocytes % (manual) 16 (0-12)
[2023-12-07 08:29] LABS: Platelet Estimate Adequate
[2023-12-07] MEDS: FAMOTIDINE (10MG/ML) 2ML VL IV SCH (10:32)
[2023-12-07] MEDS: ASPirin 81 mg TAB PO SCH (10:32)
[2023-12-07] MEDS: HEPARIN SODIUM (PORCINE) 5000 UNITS/ML 1ML VIAL SC SCH (10:33)
[2023-12-07 12:13] LABS: Amphetamine Screen, Urine Neg (NEGATIVE); Barbiturate Scree,Urine Neg (NEGATIVE); Benzodiazephine Screen, Urine Neg (NEGATIVE); Cocaine Screen, Urine Neg (NEGATIVE); Opiate Scree,Urine Neg (NEGATIVE)
[2023-12-07 12:14] LABS: Cannabinoid Screen, Urine Neg (NEGATIVE); Phencyclidine Screen, Urine Neg (NEGATIVE)
[2023-12-07] MEDS: cefTRIAXone 1GM/50ML D5W 50 ML IV SCH (12:16)
[2023-12-07] MEDS: PANTOPRAZOLE 40 MG/10 ML VIAL INJ IV SCH (12:16)
[2023-12-07 12:27] LABS: Magnesium 1.7 mg/dL (1.6-2.6)
[2023-12-07] MEDS: ACETAMINOPHEN 325 MG TAB PO PRN (14:13)
[2023-12-07] MEDS: AZITHROMYCIN 500MG/ 250ML 250 ML IV SCH (22:21)
[2023-12-08] VITALS (11 sets, daily range): BP systolic 107–128; BP diastolic 70–81; PULSE 96–106; RESP 16–24; TEMP 98.4–99.1; O2SAT 93–100
[2023-12-08 06:07] LABS: Basophils # (auto) 0 10 ^3/uL (0-0.2); Eosinophils # (auto) 0 10 ^3/uL (0-0.8); Hemoglobin 8.6 g/dL (12.2-16.2); Neutrophils # (auto) 0.9 10 ^3/uL (1.6-8.6); White Blood Cell 2.2 10^3/uL (4.4-10.8)
[2023-12-08 06:08] LABS: Basophils % (auto) 0.4 % (0.0-2.0); Hematocrit 26.8 % (36.0-46.0); Lymphocytes % (auto) 43.6 % (10.0-50.0); Mean Corpuscular Hemoglobin 23.6 pg (28.0-32.0); Mean Corpuscular Volume 73.8 fL (80.0-100.0); Monocytes # (auto) 0.4 10 ^3/uL (0-1.3); Monocytes % (auto) 16.1 % (0.0-12.0); Neutrophils % (auto) 39.9 % (37.0-80.0); Nucleated Red Blood Cells % 0.3 %; Red Blood Cells 3.63 10^6/uL (4.0-5.20); Red Cell Distribution Width 17.2 % (11.8-14.3)
[2023-12-08 06:17] LABS: Alanine Aminotransferase 19 U/L (7-40); Alkaline Phosphatase 81 U/L (46-116); Anion Gap 9 (5-15); Aspartate Aminotransferase 25 U/L (13-40); BUN/Creatinine Ratio 19.2 (10.0-20.0); Bilirubin, Total 0.3 mg/dL (0.2-1.0); Blood Urea Nitrogen 14 mg/dL (9-23); Calcium 8.4 mg/dL (8.5-10.1); Carbon Dioxide 21 mmol/L (20-30); Chloride 109 mmol/L (98-107); Glucose 114 mg/dL (74-106); Potassium 3.7 mmol/L (3.5-5.1); Sodium 139 mmol/L (136-145); Thyroid Stimulating Hormone 1.75 uIU/mL (0.55-4.78); Total Protein 6.2 g/dL (5.7-8.2)
[2023-12-08 06:21] LABS: % Iron Saturation 14.2 % (15-50)
[2023-12-08 06:25] LABS: CRP High Sensitivity 5.75 mg/dL (<1.0); Pre Albumin < 5.0 md/dL (10.0-40.0)
[2023-12-08 07:15] LABS: Erythrocyte Sedimentation Rate 83 mm/hr (0-20)
[2023-12-08] MEDS: FERROUS SULFATE 325mg EC TAB PO SCH (10:00)
[2023-12-08 10:35] LABS: Folate (Folic Acid) 8.01 ng/mL (>5.38)
[2023-12-08 10:36] LABS: Ferritin 166.7 ng/mL (10-291)
[2023-12-08 10:38] LABS: Free T4 (Free Thyroxine) 1.07 ng/dL (0.89-1.76)
[2023-12-08] MEDS: IPRATROPIUM BROM 0.5 MG/2.5ML INH SOL NEB SCH (12:00)
[2023-12-08] MEDS: ALBUTEROL SULF 2.5 MG/0.5ML(0.5%) NEB SOLN NEB SCH (12:00)
[2023-12-08] MEDS: IOHEXOL 350 MG/ML 100ML IJ ONE ×2 (12:21→12:47)
[2023-12-08] MEDS: CYANOCOBALAMIN (B-12) 1000 MCG/1 ML VIAL IM ONE (12:58)
[2023-12-08] MEDS: ERGOCALCIFEROL 50,000 UNIT(1.25MG) CAP PO SCH (12:59)
[2023-12-08] MEDS ORDERED: ZIPR20CA15 PO (13:47)
[2023-12-08] MEDS ORDERED: CARB200T4 PO (17:26)
[2023-12-08] MEDS ORDERED: LACT10SO3 PO (17:26)
[2023-12-08] MEDS ORDERED: ZIPR80CA37 PO (17:26)
[2023-12-08] MEDS: IRON SUCROSE COMPLEX 100 ML IV ONE (20:23)
[2023-12-08] MEDS: carBAMazepine 200 MG TAB PO ONE (23:03)
[2023-12-09] VITALS (14 sets, daily range): BP systolic 100–120; BP diastolic 67–73; PULSE 91–110; RESP 14–18; TEMP 98–98.8; O2SAT 95–100
[2023-12-09 06:13] LABS: Chloride 108 mmol/L (98-107); Potassium 3.6 mmol/L (3.5-5.1); Sodium 138 mmol/L (136-145)
[2023-12-09 06:14] LABS: Anion Gap 8 (5-15); Calcium 8.4 mg/dL (8.7-10.4); Carbon Dioxide 22 mmol/L (20-30)
[2023-12-09 06:18] LABS: Basophils # (auto) 0 10 ^3/uL (0-0.2); Eosinophils # (auto) 0 10 ^3/uL (0-0.8); Lymphocytes # (auto) 0.9 10 ^3/uL (0.4-5.4); Monocytes # (auto) 0.3 10 ^3/uL (0-1.3); Neutrophils # (auto) 1.1 10 ^3/uL (1.6-8.6); White Blood Cell 2.3 10^3/uL (4.4-10.8)
[2023-12-09 06:19] LABS: BUN/Creatinine Ratio 14.9 (10.0-20.0); Blood Urea Nitrogen 10 mg/dL (9-23); Glucose 106 mg/dL (74-106)
[2023-12-09 06:20] LABS: Magnesium 1.5 mg/dL (1.6-2.6)
[2023-12-09 06:22] LABS: Basophils % (auto) 0.3 % (0.0-2.0); Hematocrit 26.6 % (36.0-46.0); Hemoglobin 8.2 g/dL (12.2-16.2); Lymphocytes % (auto) 38.4 % (10.0-50.0); Mean Corpuscular Hgb Conc. 30.9 g/dL (32.0-36.0); Mean Corpuscular Volume 74.3 fL (80.0-100.0); Monocytes % (auto) 13.7 % (0.0-12.0); Neutrophils % (auto) 47.6 % (37.0-80.0); Nucleated Red Blood Cells % 0.5 %; Red Blood Cells 3.58 10^6/uL (4.0-5.20)
[2023-12-09 07:06] LABS: Rheumatoid Arthritis Factor 10.7 IU/mL (<14.0)
[2023-12-09] MEDS: FUROSEMIDE 40 MG/4 ML VIAL ONE (08:02)
[2023-12-09] MEDS: MAGNESIUM SULFATE 1GM/100ML 100 ML IV SCH (09:00)
[2023-12-09] MEDS: carBAMazepine 200 MG TAB PO SCH ×2 (09:41→22:15)
[2023-12-09] MEDS: CYANOCOBALAMIN (B-12) 1000 MCG/1 ML VIAL IM SCH (09:41)
[2023-12-09] MEDS: FUROSEMIDE 20 MG/2 ML VIAL IV ONE (11:55)
[2023-12-09] MEDS: MAGNESIUM OXIDE 400 MG TAB PO ONE (11:55)
[2023-12-09] MEDS: methylPREDNISolone SOD SUCC 40 MG/ML VL IV SCH (12:10)
[2023-12-09 13:07] LABS: Erythropoietin 59.5 mIU/mL (2.6-18.5)
[2023-12-09] MEDS: IRON SUCROSE COMPLEX 100 ML IV SCH (14:03)
[2023-12-09] MEDS ORDERED: GEODON 20 MG PO SCH (22:00)
[2023-12-09] MEDS ORDERED: ZIPRASIDONE 20 MG PO SCH ×2 (22:00)
[2023-12-09] MEDS ORDERED: PATIENTS OWN MEDICATION PO ONE (22:00)
[2023-12-09] MEDS: MAGNESIUM OXIDE 400 MG TAB PO SCH (22:16)
[2023-12-09] MEDS: ZIPRASIDONE 20 MG PO SCH (22:16)
[2023-12-10] VITALS (18 sets, daily range): BP systolic 94–110; BP diastolic 54–73; PULSE 90–116; RESP 16–20; TEMP 98.1–99.4; O2SAT 94–100
[2023-12-10 06:21] LABS: Anion Gap 7 (5-15); Carbon Dioxide 25 mmol/L (20-30); Chloride 110 mmol/L (98-107); Potassium 4.3 mmol/L (3.5-5.1); Sodium 142 mmol/L (136-145)
[2023-12-10 06:22] LABS: Calcium 8.7 mg/dL (8.7-10.4)
[2023-12-10 06:27] LABS: BUN/Creatinine Ratio 17.6 (10.0-20.0); Blood Urea Nitrogen 12 mg/dL (9-23); Glucose 122 mg/dL (74-106)
[2023-12-10 06:28] LABS: Magnesium 1.8 mg/dL (1.6-2.6)
[2023-12-10] MEDS: AZITHROMYCIN 250 MG TAB PO SCH (10:05)
[2023-12-10] MEDS: FUROSEMIDE 20 MG/2 ML VIAL IV SCH (10:07)
[2023-12-11] VITALS (16 sets, daily range): BP systolic 101–112; BP diastolic 61–75; PULSE 90–108; RESP 14–20; TEMP 97.9–98.6; O2SAT 93–100
[2023-12-11] MEDS: HYDROcodone-ACET 5/325MG TAB PO PRN (12:19)
[2023-12-11] MEDS: LACTULOSE 20Gm/30ML SOLN PO ONE (14:38)
[2023-12-11] MEDS ORDERED: PRED20TA2 PO (16:35)
[2023-12-11] MEDS ORDERED: ERGO1CAP23 PO (16:35)
[2023-12-11] MEDS ORDERED: FERR-7 PO (16:35)
[2023-12-12] VITALS (10 sets, daily range): BP systolic 108–123; BP diastolic 64–78; PULSE 81–103; RESP 16–20; TEMP 98–98.6; O2SAT 95–100
[2023-12-12 06:05] LABS: Basophils # (auto) 0 10 ^3/uL (0-0.2); Eosinophils # (auto) 0 10 ^3/uL (0-0.8); Hemoglobin 8.2 g/dL (12.2-16.2); Monocytes # (auto) 0.3 10 ^3/uL (0-1.3); White Blood Cell 3.7 10^3/uL (4.4-10.8)
[2023-12-12 06:08] LABS: Basophils % (auto) 0.3 % (0.0-2.0); Hematocrit 26.1 % (36.0-46.0); Lymphocytes % (auto) 27.5 % (10.0-50.0); Mean Corpuscular Hemoglobin 23.3 pg (28.0-32.0); Mean Corpuscular Hgb Conc. 31.3 g/dL (32.0-36.0); Mean Corpuscular Volume 74.4 fL (80.0-100.0); Monocytes % (auto) 9.2 % (0.0-12.0); Neutrophils # (auto) 2.3 10 ^3/uL (1.6-8.6); Nucleated Red Blood Cells % 2.2 %; Red Blood Cells 3.52 10^6/uL (4.0-5.20); Red Cell Distribution Width 17.2 % (11.8-14.3)
[2023-12-12 06:09] LABS: Anion Gap 8 (5-15); Carbon Dioxide 25 mmol/L (20-30); Chloride 108 mmol/L (98-107); Potassium 4.2 mmol/L (3.5-5.1); Sodium 141 mmol/L (136-145)
[2023-12-12 06:14] LABS: Glucose 126 mg/dL (74-106)
[2023-12-12 06:15] LABS: BUN/Creatinine Ratio 20.7 (10.0-20.0); Blood Urea Nitrogen 17 mg/dL (9-23); Magnesium 1.7 mg/dL (1.6-2.6)
== END 2023-12-12 17:48 | disposition home or self-care (01) | DRG 193 ==
LOC: ER 20:49 → TELE 12-07 02:32 → TELE-WESTW 12-08 16:09 → WEST WING 12-09 03:50
PROVIDERS: ADMIT Nurse Practitioner Family; ATTEND Internal Medicine
DX: J18.0 Bronchopneumonia, unspecified organism (principal); D61.811 Other drug-induced pancytopenia; I21.A1 Myocardial infarction type 2; F84.0 Autistic disorder; I82.441 Acute embolism and thrombosis of right tibial vein; N13.6 Pyonephrosis; J45.901 Unspecified asthma with (acute) exacerbation; N17.9 Acute kidney failure, unspecified; E87.6 Hypokalemia; E66.9 Obesity, unspecified; R56.9 Unspecified convulsions; F79 Unspecified intellectual disabilities; N20.0 Calculus of kidney; D64.9 Anemia, unspecified; Z81.8 Family history of other mental and behavioral disorders; Z80.8 Family history of malignant neoplasm of other organs or systems; Z82.3 Family history of stroke; Z82.49 Family history of ischemic heart disease and other diseases of the circulatory system; Z80.41 Family history of malignant neoplasm of ovary; Z80.3 Family history of malignant neoplasm of breast; Z80.1 Family history of malignant neoplasm of trachea, bronchus and lung; Z80.0 Family history of malignant neoplasm of digestive organs; Z82.0 Family history of epilepsy and other diseases of the nervous system; Z82.62 Family history of osteoporosis; Z83.3 Family history of diabetes mellitus; Z85.038 Personal history of other malignant neoplasm of large intestine; Z82.5 Family history of asthma and other chronic lower respiratory diseases; Z68.28 Body mass index [BMI] 28.0-28.9, adult
CPT/HCPCS: 36415; 71045; 71275; 76775; 78707; 80048; 80053; 80061; 80307; 81001; 81025; 82040; 82607; 82668; 82728; 82746; 83010; 83036; 83540; 83550; 83605; 83615; 83735; 83880; 84439; 84443; 84484; 85007; 85025; 85027; 85379; 85652; 86141; 86431; 86703; 86850; 86880; 86900; 86901; 87040; 93005; 93306; 93970; 94640; C9113; G0378; J1756; J3480; J3490

== ENCOUNTER 2024-02-03 09:54 | Day surgery (SDC) | payer OTHER, MEDICAID ==
[2024-01-30 14:54] LABS: Urine Bacteria None Seen /hpf (None Seen)
[2024-01-30 14:59] LABS: Basophils # (auto) 0 10 ^3/uL (0-0.2); Basophils % (auto) 0.3 % (0.0-2.0); Eosinophils # (auto) 0 10 ^3/uL (0-0.8); Hemoglobin 10.4 g/dL (12.2-16.2); Lymphocytes # (auto) 1.1 10 ^3/uL (0.4-5.4); Mean Corpuscular Hemoglobin 25.5 pg (28.0-32.0); Mean Corpuscular Hgb Conc. 31.6 g/dL (32.0-36.0); Mean Corpuscular Volume 80.5 fL (80.0-100.0); Monocytes # (auto) 0.3 10 ^3/uL (0-1.3); Monocytes % (auto) 8.3 % (0.0-12.0); Neutrophils # (auto) 2.6 10 ^3/uL (1.6-8.6); Neutrophils % (auto) 63.4 % (37.0-80.0); Nucleated Red Blood Cells % 0.1 %; Red Blood Cells 4.09 10^6/uL (4.0-5.20); White Blood Cell 4.1 10^3/uL (4.4-10.8)
[2024-01-30 15:00] LABS: Red Cell Distribution Width 21.7 % (11.8-14.3)
[2024-01-30 15:13] LABS: Urine Amorphous Crystal FEW /hpf (None Seen); Urine Blood 2+ /uL (Negative); Urine Clarity Clear (Clear); Urine Color Yellow (Yellow); Urine Protein, UAD 1+ (Negative); Urine Urobilinogen Normal (Negative); Urine WBC 9 /hpf (0 - 5)
[2024-01-30 15:15] LABS: Albumin 3.7 g/dL (3.2-4.8); Alkaline Phosphatase 63 U/L (46-116); Anion Gap 13 (5-15); Aspartate Aminotransferase 18 U/L (13-40); BUN/Creatinine Ratio 17.6 (10.0-20.0); Bilirubin, Total 0.3 mg/dL (0.2-1.0); Blood Urea Nitrogen 15 mg/dL (9-23); Calcium 9.6 mg/dL (8.5-10.1); Carbon Dioxide 19 mmol/L (20-30); Chloride 106 mmol/L (98-107); Glucose 97 mg/dL (74-106); Potassium 3.8 mmol/L (3.5-5.1); Sodium 138 mmol/L (136-145); Total Protein 7.4 g/dL (5.7-8.2)
[2024-01-30 15:20] LABS: Alanine Aminotransferase < 9 U/L (7-40)
[2024-01-30 15:27] LABS: INR 1.05 (0.9-1.15); Partial Thromboplastin Time 27.1 SEC (24.5-34.5)
[~2024-02-03] VITALS: Ht 157.5 cm; Wt 66.7 kg
[~2024-02-03 09:54] MED LIST changes: +ERGO1CAP23 PO; -LACT10SO3 PO; -LEVO750T8 PO; +LINA145C OR; -POLY33504 PO
[2024-02-03] MEDS ORDERED: CIPROFLOXACIN 400MG/200ML 200 ML IV ONE (13:18)
[2024-02-03] MEDS ORDERED: HYDROmorphone HCL 2 MG/ML VL/or syr IV PRN (14:45)
[2024-02-03] MEDS ORDERED: ONDANSETRON HCL 4 MG/2 ML VIAL IV ONE (14:45)
[2024-02-03] MEDS ORDERED: fentaNYL CITRATE 100 MCG/2 ML VL ONE (15:01)
[2024-02-03] MEDS ORDERED: LIDOCAINE 2% (LOCAL ANESTH.) PF 5ml SDV ONE (15:02)
[2024-02-03] MEDS ORDERED: ONDANSETRON HCL 4 MG/2 ML VIAL ONE (15:02)
[2024-02-03] MEDS ORDERED: PROPOFOL 10 MG/ML 20 ML IV ONE (15:02)
[2024-02-03 15:54] VITALS: TEMP 96.9; O2SAT 100
[2024-02-03 16:39] VITALS: BP 112/78; PULSE 90; RESP 20; O2SAT 98
== END 2024-02-03 16:45 | disposition home or self-care (01) ==
LOC: SUR 09:54
PROVIDERS: ATTEND Urology
DX: N20.1 Calculus of ureter (principal); N28.89 Other specified disorders of kidney and ureter; D30.01 Benign neoplasm of right kidney; F32.A Depression, unspecified; G40.909 Epilepsy, unspecified, not intractable, without status epilepticus; Z86.2 Personal history of diseases of the blood and blood-forming organs and certain disorders involving the immune mechanism; Z80.8 Family history of malignant neoplasm of other organs or systems; Z79.899 Other long term (current) drug therapy; Z98.890 Other specified postprocedural states
CPT/HCPCS: 36415; 52332; 52354; 52356; 74018; 74420; 80053; 81001; 81025; 82360; 84702; 85025; 85610; 85730; 87086; 88300; 88305; 88342; C2617; J0744; J2001; J2405; J2704; J3010; 76000

== ENCOUNTER → 2024-05-04 | Day surgery (SDC) | payer OTHER, MEDICAID ==
[2024-04-29 14:56] LABS: Urine Bacteria None Seen /hpf (None Seen)
[2024-04-29 14:58] LABS: Basophils # (auto) 0 10 ^3/uL (0-0.2); Basophils % (auto) 0.2 % (0.0-2.0); Eosinophils # (auto) 0 10 ^3/uL (0-0.8); Eosinophils % (auto) 0.1 % (0.0-7.0); Hematocrit 34.4 % (36.0-46.0); Hemoglobin 10.9 g/dL (12.2-16.2); Lymphocytes # (auto) 0.9 10 ^3/uL (0.4-5.4); Lymphocytes % (auto) 33.4 % (10.0-50.0); Mean Corpuscular Hemoglobin 27.5 pg (28.0-32.0); Mean Corpuscular Hgb Conc. 31.6 g/dL (32.0-36.0); Mean Corpuscular Volume 86.9 fL (80.0-100.0); Monocytes # (auto) 0.3 10 ^3/uL (0-1.3); Monocytes % (auto) 10.7 % (0.0-12.0); Neutrophils # (auto) 1.5 10 ^3/uL (1.6-8.6); Neutrophils % (auto) 55.6 % (37.0-80.0); Nucleated Red Blood Cells % 0.3 %; Red Blood Cells 3.96 10^6/uL (4.0-5.20); Red Cell Distribution Width 15.2 % (11.8-14.3); White Blood Cell 2.8 10^3/uL (4.4-10.8)
[2024-04-29 15:09] LABS: Urine Blood 3+ /uL (Negative); Urine Clarity Ex.Turbid (Clear); Urine Color Colorless (Yellow); Urine Protein, UAD 2+ (Negative); Urine Specific Gravity 1.016 (1.001-1.035); Urine Urobilinogen Normal (Negative); Urine WBC 301 /hpf (0 - 5); Urine WBC Clumps PRESENT /hpf (None Seen); Urine pH 6.5 (5.0-9.0)
[2024-04-29 15:18] LABS: INR 0.98 (0.9-1.15); Partial Thromboplastin Time 24.8 SEC (24.5-34.5); Prothrombin Time 10.4 sec (9.3-11.8)
[2024-04-29 16:11] LABS: Albumin 3.6 g/dL (3.2-4.8); Alkaline Phosphatase 66 U/L (46-116); Anion Gap 8 (5-15); Aspartate Aminotransferase 10 U/L (13-40); BUN/Creatinine Ratio 17.5 (10.0-20.0); Bilirubin, Total 0.3 mg/dL (0.2-1.0); Blood Urea Nitrogen 11 mg/dL (9-23); Calcium 9.4 mg/dL (8.7-10.4); Carbon Dioxide 23 mmol/L (20-30); Chloride 111 mmol/L (98-107); Glucose 83 mg/dL (74-106); Sodium 142 mmol/L (136-145); Total Protein 6.9 g/dL (5.7-8.2)
[2024-04-29 16:13] LABS: Alanine Aminotransferase < 9 U/L (7-40)
[~2024-05-04] VITALS: Ht 157.5 cm; Wt 66.7 kg
[~2024-05-04] MED LIST changes: +CIPROFLOXACIN 400MG/200ML 200 ML IV ONE; +ONDANSETRON HCL 4 MG/2 ML VIAL IV ONE; +PROPOFOL 10 MG/ML 20 ML IV ONE; +ePHEDrine SULFATE 50 MG/ML AMP ONE; +fentaNYL CITRATE 100 MCG/2 ML VL ONE
[2024-05-04 12:09] VITALS: TEMP 98.2; O2SAT 100
[2024-05-04 13:09] VITALS: BP 127/87; PULSE 100; RESP 19; O2SAT 99
== END | disposition home or self-care (01) ==
LOC: SUR 09:17
PROVIDERS: ATTEND Urology
DX: N20.2 Calculus of kidney with calculus of ureter (principal); F32.A Depression, unspecified; J45.909 Unspecified asthma, uncomplicated; Z98.890 Other specified postprocedural states; Z80.8 Family history of malignant neoplasm of other organs or systems
CPT/HCPCS: 36415; 50590; 52310; 80053; 81001; 84702; 85025; 85610; 85730; 87086; C1769; J0744; J2704; J3010; J7030

== ENCOUNTER 2024-07-29 12:23 | Emergency (ER) | payer OTHER, MEDICAID ==
[~2024-07-29] VITALS: Ht 157.5 cm; Wt 62.8 kg
[~2024-07-29 12:23] MED LIST changes: -CIPROFLOXACIN 400MG/200ML 200 ML IV ONE; -ONDANSETRON HCL 4 MG/2 ML VIAL IV ONE; -PROPOFOL 10 MG/ML 20 ML IV ONE; -ePHEDrine SULFATE 50 MG/ML AMP ONE; -fentaNYL CITRATE 100 MCG/2 ML VL ONE
[2024-07-29 13:41] VITALS: BP 120/82; PULSE 90; RESP 16; TEMP 98.9; O2SAT 100
[2024-07-29] MEDS ORDERED: IBUP-1454 PO (14:30)
== END 2024-07-29 14:45 | disposition home or self-care (01) ==
LOC: ER 12:29
DX: S93.402A Sprain of unspecified ligament of left ankle, initial encounter (principal); Z79.1 Long term (current) use of non-steroidal anti-inflammatories (NSAID); X58.XXXA Exposure to other specified factors, initial encounter; Y93.89 Activity, other specified; Y92.89 Other specified places as the place of occurrence of the external cause; Y99.8 Other external cause status
CPT/HCPCS: 73610